=== PATIENT | male | born 1990 | race Caucasian/White ===

== ENCOUNTER 2019-06-10 19:52 | Emergency (ER) | payer OTHER ==
[~2019-06-10] VITALS: Ht 165.1 cm; Wt 73.5 kg
[2019-06-10 19:55] VITALS: BP 128/90
--- NOTE | 2019-06-10 19:57 | NUR ---
TO LOBBY A/W BED AMBULATORY
--- NOTE | 2019-06-10 20:31 | NUR ---
PT TAKEN TO BED 9
--- NOTE | 2019-06-10 21:00 | NUR ---
c/o cook x today. lung sounds clear all throughout. no resp distress noted. congested nose present. rates cook 8/10 and describes it as throbbing. steady gait. no n,v,d, or fever. nka. no pmh.
[2019-06-10] MEDS ORDERED: KETOROLAC 30 MG/ML VIAL IM ONE (21:05)
[2019-06-10 21:34] VITALS: BP 128/90
--- NOTE | 2019-06-10 22:34 | NUR ---
Patient discharged with v/s stable. Written and verbal after care instructions given and explained. Patient alert, oriented and verbalized understanding of instructions. Ambulatory with steady gait. All questions addressed prior to discharge. ID band removed. Patient advised to follow up with PMD. Rx of ibuprofen and flonase given. Patient educated on indication of medication including possible reaction and side effects. Opportunity to ask questions provided and answered.
== END 2019-06-10 22:34 | disposition home or self-care (01) ==
LOC: MED 19:52
DX: R51 Headache (principal); J06.9 Acute upper respiratory infection, unspecified
CPT/HCPCS: 87804; 96372; 99283; J1885